=== PATIENT | female | born 1960 | race Caucasian/White ===

== ENCOUNTER → 2017-04-23 | Outpatient (CLI) | payer BC ==
--- NOTE | 2017-04-26 07:51 | MM ---
Reason for exam: screening (asymptomatic). Last mammogram was performed 1 year ago. History: Patient has history of other cancer at age 49. Family history of breast cancer in mother at age 82 and breast cancer in maternal grandmother at age 55. Took hormonal contraceptives for 5 years. Physical Findings: A clinical breast exam by your physician is recommended on an annual basis and results should be correlated with mammographic findings. MG 3D Screening Mammo W/Cad Bilateral CC and MLO view(s) were taken. Prior study comparison: April 23, 2016, left breast MG 3d work up w/cad LT. April 17, 2016, bilateral MG 3d screening mammo w/cad. The breast tissue is extremely dense which could obscure a lesion on mammography. No significant changes when compared with prior studies. ASSESSMENT: Benign, BI-RAD 2 RECOMMENDATION: Routine screening mammogram of both breasts in 1 year.
== END | disposition home or self-care (01) ==
LOC: RADMAMWWP 10:48
PROVIDERS: ATTEND Obstetrics & Gynecology
DX: Z12.31 Encounter for screening mammogram for malignant neoplasm of breast (principal)
CPT/HCPCS: 77063; G0202

== ENCOUNTER → 2018-04-25 | Outpatient (CLI) | payer BC ==
--- NOTE | 2018-04-25 16:53 | BD ---
EXAMINATION TYPE: Axial Bone Density DATE OF EXAM: 04/25/2018 COMPARISON: NONE CLINICAL HISTORY: 57 year-old male known osteopenia, postmenopausal screening Height: 5 FT 5 1/4 IN Weight: 143 FRAX RISK QUESTIONS: RISK FACTORS HISTORY OF: Family History of Osteoporosis: YES Active: YES Postmenopausal woman: AGE 55 MEDICATIONS: Additional Medications: SINGULAIR Additional History: EXAM MEASUREMENTS: Bone mineral densitometry was performed using the [employer] System. Bone mineral density as measured about the Lumbar spine is: ----- L1-L4(G/cm2): 1.186 T Score Values are as follows: ----- L2: -0.2 ----- L3: 0.8 ----- L4: -0.3 ----- L1-L4: 0.0 Bone mineral density has: INCREASED 0.2 % since study of: 2015 Bone mineral density about the R hip (g/cm2): 0.849 Bone mineral density about the L hip (g/cm2): 0.844 T Score values are as follows: -----R Neck: -1.4 -----L Neck: -1.4 -----R Total: -1.2 -----L Total: -1.1 Bone mineral density has: DECREASED -3.0 % since study of: 2015 IMPRESSION: Osteopenia (T Score between -2.5 and -1). There is slightly increased risk of fracture and the patient may be considered for treatment. Re-Screen 2-5 years. NOTE: T-SCORE=SD OF THE YOUNG ADULT MEAN.
--- NOTE | 2018-04-26 08:57 | MM ---
Reason for exam: screening (asymptomatic). Last mammogram was performed 1 year ago. History: Patient is postmenopausal and has history of other cancer at age 49. Family history of breast cancer in mother at age 82 and breast cancer in maternal grandmother at age 55. Took hormonal contraceptives for 5 years. Physical Findings: A clinical breast exam by your physician is recommended on an annual basis and results should be correlated with mammographic findings. MG 3D Screening Mammo W/Cad Bilateral CC and MLO view(s) were taken. Prior study comparison: April 23, 2017, bilateral MG 3d screening mammo w/cad. April 23, 2016, left breast MG 3d work up w/cad LT. The breast tissue is heterogeneously dense. This may lower the sensitivity of mammography. Scattered benign punctate calcifications both breasts. No significant changes when compared with prior studies. ASSESSMENT: Negative, BI-RAD 1 RECOMMENDATION: Routine screening mammogram of both breasts in 1 year.
== END | disposition home or self-care (01) ==
LOC: RADMAMWWP 06:59
PROVIDERS: ATTEND Obstetrics & Gynecology
DX: Z12.31 Encounter for screening mammogram for malignant neoplasm of breast (principal); M85.80 Other specified disorders of bone density and structure, unspecified site
CPT/HCPCS: 77063; 77067; 77080

== ENCOUNTER → 2019-05-03 | Outpatient (CLI) | payer BC ==
--- NOTE | 2019-05-04 15:08 | MM ---
Reason for exam: screening (asymptomatic). Last mammogram was performed 1 year ago. History: Patient is postmenopausal and has history of other cancer at age 49. Family history of breast cancer in mother at age 82 and breast cancer in maternal grandmother at age 55. Took hormonal contraceptives for 5 years. Physical Findings: A clinical breast exam by your physician is recommended on an annual basis and results should be correlated with mammographic findings. MG 3D Screening Mammo W/Cad Bilateral CC and MLO view(s) were taken. Prior study comparison: April 25, 2018, bilateral MG 3d screening mammo w/cad. April 23, 2017, bilateral MG 3d screening mammo w/cad. The breast tissue is extremely dense which could obscure a lesion on mammography. Finding #1: There is a 7 mm equal density (isodense), lobulated mass in the upper quadrant of the left breast. Finding #2: There are typically benign calcifications in both breasts. ASSESSMENT: Incomplete: need additional imaging evaluation, BI-RAD 0 RECOMMENDATION: Special view mammogram of the left breast. If lesion persists on supplemental views, image directed ultrasound is recommended. [facility] will attempt to contact patient to return for supplemental views and ultrasound if indicated.
== END | disposition home or self-care (01) ==
LOC: RADMAMWWP 07:08
PROVIDERS: ATTEND Obstetrics & Gynecology
DX: Z12.31 Encounter for screening mammogram for malignant neoplasm of breast (principal)
CPT/HCPCS: 77063; 77067

== ENCOUNTER → 2019-05-12 | Outpatient (CLI) | payer BC ==
--- NOTE | 2019-05-15 09:17 | MM ---
Reason for exam: additional evaluation requested from abnormal screening. Last mammogram was performed less than 1 month ago. History: Patient is postmenopausal and has history of other cancer at age 49. Family history of breast cancer in mother at age 82 and breast cancer in maternal grandmother at age 55. Took hormonal contraceptives for 5 years. Physical Findings: Nurse did not find any significant physical abnormalities on exam. MG 3D Work Up W/Cad LT Spot compression CC, spot compression MLO, and ML view(s) were taken of the left breast. Prior study comparison: May 03, 2019, bilateral MG 3d screening mammo w/cad. April 25, 2018, bilateral MG 3d screening mammo w/cad. The breast tissue is heterogeneously dense. This may lower the sensitivity of mammography. Benign appearing calcifications in the left breast. Left upper outer quadrant mass and distortion persist 3-4cm from nipple. Ultrasound will be performed. These results were verbally communicated with the patient and result sheet given to the patient on 05/12/19. ASSESSMENT: Incomplete: need additional imaging evaluation, BI-RAD 0 RECOMMENDATION: Ultrasound of the left breast. (upper outer quadrant)
--- NOTE | 2019-05-15 09:18 | USB ---
Reason for exam: additional evaluation requested from abnormal screening. History: Patient is postmenopausal and has history of other cancer at age 49. Family history of breast cancer in mother at age 82 and breast cancer in maternal grandmother at age 55. Took hormonal contraceptives for 5 years. US Breast Workup Limited LT Left limited breast ultrasound including focal area of concern, retroareolar and axilla demonstrates ductal ectasia with debris at the posterior nipple. These results were verbally communicated with the patient and result sheet given to the patient on 05/12/19. ASSESSMENT: Probably benign, BI-RAD 3 RECOMMENDATION: Follow-up diagnostic mammogram of the left breast in 6 months. (3D)
== END | disposition home or self-care (01) ==
LOC: RADMAMWWP 08:54
PROVIDERS: ATTEND Obstetrics & Gynecology
DX: R92.8 Other abnormal and inconclusive findings on diagnostic imaging of breast (principal)
CPT/HCPCS: 77061; 77065

== ENCOUNTER → 2019-11-23 | Outpatient (CLI) | payer BC ==
--- NOTE | 2019-11-23 08:48 | MM ---
Reason for exam: follow-up at short interval from prior study. Last mammogram was performed 6 months ago. History: Patient is postmenopausal and has history of other cancer at age 49. Family history of breast cancer in mother at age 82 and breast cancer in maternal grandmother at age 55. Took hormonal contraceptives for 5 years. Physical Findings: Nurse did not find any significant physical abnormalities on exam. MG 3D Diag Mammo W/Cad LT CC, MLO, and XCCL view(s) were taken of the left breast. Prior study comparison: May 12, 2019, left breast MG 3d work up w/cad LT. May 03, 2019, bilateral MG 3d screening mammo w/cad. April 23, 2017, bilateral MG 3d screening mammo w/cad. April 17, 2016, bilateral MG 3d screening mammo w/cad. April 12, 2015, bilateral MG screening mammo w CAD. The breast tissue is heterogeneously dense. This may lower the sensitivity of mammography. Stable milk of calcium and some grouped punctate calcifications. No significant new findings when compared with previous films. These results were verbally communicated with the patient and result sheet given to the patient on 11/23/19. ASSESSMENT: Benign, BI-RAD 2 RECOMMENDATION: Return to routine screening mammogram schedule for both breasts. Back on schedule.
== END ==
LOC: RADMAMWWP 06:51
PROVIDERS: ATTEND Obstetrics & Gynecology
DX: R92.8 Other abnormal and inconclusive findings on diagnostic imaging of breast (principal)
CPT/HCPCS: 77061; 77065

== ENCOUNTER → 2020-06-20 | Outpatient (CLI) | payer BC ==
--- NOTE | 2020-06-24 09:19 | MM ---
Reason for exam: screening (asymptomatic). Last mammogram was performed 7 months ago. History: Patient is postmenopausal and has history of other cancer at age 49. Family history of breast cancer in mother at age 82 and breast cancer in maternal grandmother at age 55. Took hormonal contraceptives for 5 years. Physical Findings: A clinical breast exam by your physician is recommended on an annual basis and results should be correlated with mammographic findings. MG 3D Screening Mammo W/Cad Bilateral CC and MLO view(s) were taken. Prior study comparison: November 23, 2019, left breast MG 3d diag mammo w/cad LT. May 12, 2019, left breast MG 3d work up w/cad LT. May 03, 2019, bilateral MG 3d screening mammo w/cad. April 25, 2018, bilateral MG 3d screening mammo w/cad. The breast tissue is extremely dense which could obscure a lesion on mammography. Finding: There are increased intermediate concern, suspicious coarse heterogeneous, grouped/clustered calcifications in the posterior position of the left breast. New finding since November 23, 2019, May 12, 2019, May 03, 2019, and April 25, 2018. ASSESSMENT: Incomplete: need additional imaging evaluation, BI-RAD 0 RECOMMENDATION: Special view mammogram of the left breast. [facility] will attempt to contact patient to return for supplemental views.
== END | disposition home or self-care (01) ==
LOC: RADMAMWWP 07:29
PROVIDERS: ATTEND Family Medicine
DX: Z12.31 Encounter for screening mammogram for malignant neoplasm of breast (principal)
CPT/HCPCS: 77063; 77067

== ENCOUNTER → 2020-06-26 | Outpatient (CLI) | payer BC ==
--- NOTE | 2020-06-26 08:50 | MM ---
Reason for exam: additional evaluation requested from abnormal screening. Last mammogram was performed less than 1 month ago. History: Patient is postmenopausal and has history of other cancer at age 49. Family history of breast cancer in mother at age 82 and breast cancer in maternal grandmother at age 55. Took hormonal contraceptives for 5 years. Physical Findings: A clinical breast exam by your physician is recommended on an annual basis and results should be correlated with mammographic findings. MG 3D Work Up W/Cad LT CC with magnification, LM with magnification, and LM view(s) were taken of the left breast. Prior study comparison: June 20, 2020, bilateral MG 3d screening mammo w/cad. November 23, 2019, left breast MG 3d diag mammo w/cad LT. Scattered punctate calcifications, probably benign. 6 month follow up recommended. These results were verbally communicated with the patient and result sheet given to the patient on 06/26/20. ASSESSMENT: Probably benign, BI-RAD 3 RECOMMENDATION: Follow-up diagnostic mammogram of the left breast in 6 months.
== END | disposition home or self-care (01) ==
LOC: RADMAMWWP 07:26
PROVIDERS: ATTEND Obstetrics & Gynecology
DX: R92.8 Other abnormal and inconclusive findings on diagnostic imaging of breast (principal)
CPT/HCPCS: 77061; 77065

== ENCOUNTER → 2021-03-04 | Outpatient (CLI) | payer BC ==
--- NOTE | 2021-03-04 09:34 | MM ---
Reason for exam: follow-up at short interval from prior study. Last mammogram was performed 8 months ago. History: Patient is postmenopausal and has history of other cancer at age 49. Family history of breast cancer in mother at age 82 and breast cancer in maternal grandmother at age 55. Took hormonal contraceptives for 5 years. Physical Findings: Nurse did not find any significant physical abnormalities on exam. MG 3D Diag Mammo W/Cad LT CC, MLO, and XCCL view(s) were taken of the left breast. Prior study comparison: June 26, 2020, left breast MG 3d work up w/cad LT. June 20, 2020, bilateral MG 3d screening mammo w/cad. The breast tissue is extremely dense which could obscure a lesion on mammography. Left breast mildly increased punctate, scattered calcifiations probably benign. These results were verbally communicated with the patient and result sheet given to the patient on 03/04/21. ASSESSMENT: Probably benign, BI-RAD 3 RECOMMENDATION: Follow-up diagnostic mammogram of both breasts in 3 months. Back on schedule for June 2021.
== END | disposition home or self-care (01) ==
LOC: RADMAMWWP 08:09
PROVIDERS: ATTEND Obstetrics & Gynecology
DX: R92.1 Mammographic calcification found on diagnostic imaging of breast (principal); Z78.0 Asymptomatic menopausal state; Z80.3 Family history of malignant neoplasm of breast
CPT/HCPCS: 77061; 77065

== ENCOUNTER → 2021-06-25 | Outpatient (CLI) | payer BC ==
--- NOTE | 2021-06-27 10:34 | MM ---
Reason for exam: follow-up at short interval from prior study. Last mammogram was performed 4 months ago. History: Patient is postmenopausal and has history of other cancer at age 57. Family history of breast cancer in mother at age 82 and breast cancer in maternal grandmother at age 55. Took hormonal contraceptives for 5 years. Physical Findings: Nurse did not find any significant physical abnormalities on exam. MG 3D Diag Mammo W/Cad [place] Bilateral CC and MLO view(s) were taken. LM view(s) were taken of the left breast. Prior study comparison: March 04, 2021, left breast MG 3d diag mammo w/cad LT. June 26, 2020, left breast MG 3d work up w/cad LT. June 20, 2020, bilateral MG 3d screening mammo w/cad. May 03, 2019, bilateral MG 3d screening mammo w/cad. April 25, 2018, bilateral MG 3d screening mammo w/cad. April 23, 2017, bilateral MG 3d screening mammo w/cad. The breast tissue is heterogeneously dense. This may lower the sensitivity of mammography. Grouped calcifications posterior central left CC view appear increased. Additional diffuse punctate calcifications are present. These results were verbally communicated with the patient and result sheet given to the patient on 06/25/21. ASSESSMENT: Suspicious, BI-RAD 4 RECOMMENDATION: Stereotactic core biopsy of the left breast. (CC approach, potentially two sites on magnification) Called Dr. Hall's office with mammographic findings and has scheduled an appointment for the patient for 07/24/21 at 9:[address] Sánchez. Biopsy scheduled at 07/25/21 at 8:00. PRELIMINARY REPORT CALLED AND FAXED TO DR. SÁNCHEZ ON 06/27/21.
== END | disposition home or self-care (01) ==
LOC: RADMAMWWP 07:00
PROVIDERS: ATTEND Obstetrics & Gynecology
DX: R92.1 Mammographic calcification found on diagnostic imaging of breast (principal); Z80.3 Family history of malignant neoplasm of breast
CPT/HCPCS: 77062; 77066

== ENCOUNTER → 2021-07-24 | Outpatient (CLI) | payer BC ==
[2021-07-24 08:59] VITALS: BP 134/79; PULSE 64; RESP 16; TEMP 98.9
--- NOTE | 2021-07-24 09:24 | P.GSHP ---
History of Present Illness H&P Date: 07/24/21 Chief Complaint: abnormal left breast mammogram Dania is a 60 year old white female seen in consultation for Dr. Hall he does not feel any lumps masses or nodules of concern in either breast. She had a recent bilateral mammogram performed on . This revealed 2 areas of microcalcification of concern in the left breast. She was recommended to undergo a left breast stereotactic core biopsy. She has not had any procedures on her breast in the past. She is not complaining of any nipple discharge or skin changes. Caffeine: 4 cups/day nicotine: none chocolate: occasional hormones: none BCP: in 20's for 5 years Family History: mother: breast cancer > 80 maternal grandmother: breast cancer in 50's father: prostate cancer patient basal cell cancer on face Hormonal history: Menarche: 15 , breast fed: no, age at first : 31 menopause: 55 hormones: none Surgical history: skin cancer basal cell Medical history: Negative Social history: Nicotine: Negative Alcohol:weekly several drinks drugs: none - Constitutional Constitutional: Denies chills, Denies fever - EENT Eyes: denies blurred vision, denies pain Ears: deny: decreased hearing, tinnitus Ears, nose, mouth and throat: Denies headache, Denies sore throat - Breasts Breasts: bilateral: as per HPI - Cardiovascular Cardiovascular: Denies chest pain, Denies shortness of breath - Respiratory Comment: asthma Respiratory: Denies cough, Denies 7 - Gastrointestinal Gastrointestinal: Denies abdominal pain, Denies diarrhea, Denies nausea, Denies vomiting - Genitourinary (Female) Genitourinary: Denies dysuria, Denies hematuria - Menstruation Menstruation: Reports as per HPI, Reports postmenopausal - Musculoskeletal Musculoskeletal: Denies myalgias - Integumentary Integumentary: Denies pruritus, Denies rash - Neurological Neurological: Denies numbness, Denies weakness - Psychiatric Psychiatric: Denies anxiety, Denies depression - Endocrine Endocrine: Denies fatigue, Denies weight change - Hematologic/Lymphatic Comment: none - Allergic/Immunologic Allergic/Immunologic: Reports seasonal allergies Past Medical History Past Medical History: Asthma, Cancer Additional Past Medical History / Comment(s): hx skin cancer History of Any Multi-Drug Resistant Organisms: None Reported Additional Past Surgical History / Comment(s): oral surgery Past Anesthesia/Blood Transfusion Reactions: No Reported Reaction Past Psychological History: No Psychological Hx Reported Smoking Status: Never smoker Past Alcohol Use History: Occasional Past Drug Use History: None Reported - Past Family History Father Family Medical History: Cancer Mother Family Medical History: Cancer Medications and Allergies Home Medications Medication Instructions Recorded Confirmed Type Montelukast Sodium [Singulair] 10 mg PO HS 02/12/15 07/10/21 History Ventolin Hfa 1 puff INHALATION DIRECTED PRN 02/12/15 07/10/21 History Biotin 5 mg PO DAILY 07/24/21 07/24/21 History Cholecalciferol [Vitamin D3 (25 25 mcg PO DAILY 07/24/21 07/24/21 History Mcg = 1000 Iu)] Iron 18 mg PO DAILY 07/24/21 07/24/21 History Multivitamin [Multivitamins Adult 1 each PO DAILY 07/24/21 07/24/21 History Gummies] Vitamin B Complex 1 each PO DAILY 07/24/21 07/24/21 History Allergies Allergy/AdvReac Type Severity Reaction Status Date / Time mold,dust,cat Allergy Unknown Unknown Uncoded 07/24/21 08:56 Surgical - Exam Vital Signs Temp Pulse Resp BP Pulse Ox 98.9 F 64 16 134/79 99 07/24/21 08:56 07/24/21 08:56 07/24/21 08:56 07/24/21 08:56 07/24/21 08:56 BMI 23.9 - General no distress - Eyes normal ocular movement - ENT no hearing loss, no congestion - Neck no masses, trachea midline - Respiratory normal respiratory effort, clear to auscultation - Cardiovascular Rhythm: regular Heart Sounds: normal: S1, S2 - Abdomen Abdomen: soft, non tender, no guarding, no rigid, no rebound - Integumentary normal turgor - Neurologic no disoriented, no combative - Musculoskeletal normal gait, normal posture - Psychiatric oriented to time, oriented to person, oriented to place, speech is normal, memory intact Breast Exam: BRA: 36B inspection: Grade 2 ptosis bilaterally Palpation: Right breast: Multi-positional exam fibrocystic changes, no dominant masses or nodules of concern Right axilla: No adenopathy of concern Left breast: Multi-positional exam fibrocystic changes, no dominant masses or nodules of concern Left axilla: No adenopathy of concern Results Impression: 1. Dense fibrocystic breast changes 2. Mammographic abnormality 2 sites in the left breast 3. Family history of breast cancer Plan: 1. Stereotactic core biopsy left breast 2 sites The area of concern in the left breast however one site is somewhat difficult to see this is been reviewed with Dr. Cabrera from radiology. The CC from above approach has been recommended. We will attempt stereotactic core biopsy however this site cannot be well visualized we will most likely defer his 6 month follow-up examination. CC: Dr. Hall
== END ==
LOC: WWCWWP 08:44
PROVIDERS: ATTEND Surgery
DX: R92.2 Inconclusive mammogram (principal); J45.909 Unspecified asthma, uncomplicated; Z80.3 Family history of malignant neoplasm of breast; Z91.048 Other nonmedicinal substance allergy status

== ENCOUNTER → 2021-07-25 | Day surgery (SDC) | payer BC ==
[2021-07-25 07:14] VITALS: RESP 16
[2021-07-25 08:57] VITALS: BP 119/79; PULSE 66; TEMP 98.6
--- NOTE | 2021-07-25 10:54 | P.PCN ---
Date of Procedure: 07/25/21 Preoperative Diagnosis: Mammographic abnormality left breast posterior central area grouped calcifications at 2 sites lateral slightly more medial; more distinct is the more lateral lesion/both appear to be a similar morphology Postoperative Diagnosis: Same Procedure(s) Performed: Stereotactic core biopsy microcalcifications of concern left breast Anesthesia: local Surgeon: Aniya Sánchez Pathology: other (Breast tissue/microcalcifications in specimen) Condition: stable Disposition: same day Indications for Procedure: Microcalcifications of concern left breast Operative Findings: Microcalcifications of concern noted in specimen/specimen samples appears to be the more lateral specimen Description of Procedure: Dania is a 60-year-old white female who was noted on routine mammogram to have 2 areas of calcification of concern in the posterior central aspect of the left breast. The area was reviewed with Dr. Dominguez from radiology and a stereotactic core biopsy with a CC from above approach was recommended. Both areas appear to be a similar morphology. The risks and benefits of stereotactic core biopsy were discussed with the patient. She understands and wishes to proceed. The patient was taken to the stereotactic core biopsy room. A machine learning intern film was obtained. A CC from above approach was utilized. One of the areas of concern was identified. A stereo. Was obtained. The lesion was targeted. The breast was prepped using Betadine. 16 mL of 1% lidocaine were used to anesthetize the area of concern. A 9-gauge vacuum-assisted core rotating biopsy needle was driven to the correct coordinates. Pre-fire film was obtained. The needle was noted to be in the correct location. The needle was fired. A post- fire film was obtained. The needle appeared to be in the correct location. 13 specimens were obtained. Radiograph of the specimens revealed the area of concern had been sampled. Calcifications were in the specimen. A secure marked top clip was placed. This appeared to be in the correct location. A second machine learning intern film was obtained in an attempt to identify the second area of calcifications. These were slightly fainter and were not able to be identified this certainty. Dr. Dominguez was asked to assist and he concurred that the area was not identified with certainty. At this point we determined that the morphology was similar for both and that the second area could be followed conservatively. The attempt at the second biopsy was aborted. Postprocedure mammogram revealed that the clip was in the area of one of the groups of calcifications of concern. The patient tolerated the procedure in stable condition. Specimen was sent to pathology. The patient will follow-up with Dr. Avendaño. CC: Dr. Hall
--- NOTE | 2021-07-25 11:03 | MM ---
Dania is a 60-year-old white female who was noted on routine mammogram to have 2 areas of calcification of concern in the posterior central aspect of the left breast. The area was reviewed with Dr. Dominguez from radiology and a stereotactic core biopsy with a CC from above approach was recommended. Both areas appear to be a similar morphology. The risks and benefits of stereotactic core biopsy were discussed with the patient. She understands and wishes to proceed. The patient was taken to the stereotactic core biopsy room. A bridge design engineer film was obtained. A CC from above approach was utilized. One of the areas of concern was identified. A stereo. Was obtained. The lesion was targeted. The breast was prepped using Betadine. 16 mL of 1% lidocaine were used to anesthetize the area of concern. A 9-gauge vacuum-assisted core rotating biopsy needle was driven to the correct coordinates. Pre-fire film was obtained. The needle was noted to be in the correct location. The needle was fired. A post- fire film was obtained. The needle appeared to be in the correct location. 13 specimens were obtained. Radiograph of the specimens revealed the area of concern had been sampled. Calcifications were in the specimen. A secure marked top clip was placed. This appeared to be in the correct location. A second bridge design engineer film was obtained in an attempt to identify the second area of calcifications. These were slightly fainter and were not able to be identified this certainty. Dr. Dominguez was asked to assist and he concurred that the area was not identified with certainty. At this point we determined that the morphology was similar for both and that the second area could be followed conservatively. The attempt at the second biopsy was aborted. Postprocedure mammogram revealed that the clip was in the area of one of the groups of calcifications of concern. The patient tolerated the procedure in stable condition. Specimen was sent to pathology. The patient will follow-up with Dr. Avendaño. [facility]
== END ==
LOC: RADMAMWWP 07:05
PROVIDERS: ATTEND Surgery
DX: D05.12 Intraductal carcinoma in situ of left breast (principal)
CPT/HCPCS: 88305; 88342; 88341; 19081; A4648; J2001

== ENCOUNTER → 2021-08-07 | Outpatient (CLI) | payer BC ==
[2021-08-07 09:21] VITALS: BP 145/85; PULSE 64; RESP 16; TEMP 98.7
--- NOTE | 2021-08-07 11:25 | P.PN ---
Subjective Progress Note Date: 08/07/21 Principal diagnosis: Ductal carcinoma in situ left breast Dania is a 60-year-old white female who is status post left breast stereotactic core biopsy on [id number]. Pathology revealed grade 3 ductal carcinoma in situ which was ER positive WA negative. She tolerated the proc edure without difficulty. On the initial mammogram there was question as to whether there were 2 areas of calcification to sample however only one could be seen at the stereo biopsy procedure. The case was reviewed with Dr. Cabrera and a repeat diagnostic left breast mammogram with mag views was performed. The second area of calcifications was not apparent. He therefore feels that only one area of DCIS is apparent. This was discussed in detail with the patient. Surgical options including needle localization lumpectomy, +/- sentinel node biopsy, versus mastectomy plus or minus reconstruction were discussed. The reason for the sentinel node biopsy is secondary to the fact that this is a high-grade lesion and we cannot rule out invasive component until further surgical lumpectomy is performed. The patient understood this. The patient tolerated the procedure without difficulty. Objective - Vital Signs Vital signs: Vital Signs Temp 98.7 F 08/07/21 09:15 Pulse 64 08/07/21 09:15 Resp 16 08/07/21 09:15 BP 145/85 08/07/21 09:15 Pulse Ox Intake & Output 08/06/21 08/07/21 08/07/21 18:59 06:59 18:59 Weight 65.771 kg - Constitutional General appearance: Present: average body habitus, cooperative - EENT Eyes: Present: EOMI ENT: Present: hearing grossly normal - Neck Neck: Present: normal ROM - Respiratory Respiratory: bilateral: CTA - Cardiovascular Rhythm: regular Heart sounds: normal: S1, S2 - Gastrointestinal General gastrointestinal: Present: soft - Integumentary Integumentary: Present: normal turgor - Musculoskeletal Musculoskeletal: Present: gait normal - Psychiatric Psychiatric: Present: A&O x's 3, appropriate affect, intact judgment & insight - Additional findings Additional findings: Left breast biopsy site clean and dry No evidence of hematoma or infection Assessment and Plan Assessment: Impression: 1. 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 No other mammographic sites of concern are identified in the left breast on repeat diagnostic left breast mammogram and magnification views reviewed with Dr. Cabrera Plan: After discussion with the patient the patient would prefer to have a needle localization lumpectomy and sentinel node biopsy, possible oncoplastic tissue transfer Genetic testing If genetic testing will be positive the patient does have positive family history mother and maternal grandmother with breast cancer the patient would opt for more aggressive surgical approach. Risks include but are not limited to bleeding, infection, reaction to the anesthetic. The risk but quit moving and failure to remove this at the time of surgery is discussed. The risk of positive margins was discussed. She understands if this were to happen that it may be necessary to have further tissue removed from the breast. Additionally risk of axillary node biopsy include but are not limited to bleeding, infection, reaction to the anesthetic, risk of injury to the thoracodorsal and long thoracic nerve, numbness to the inner arm, or lymphedema. CC: Dr. Hall, Dr. Schwartz
== END ==
LOC: WWCWWP 09:06
PROVIDERS: ATTEND Surgery
DX: D05.12 Intraductal carcinoma in situ of left breast (principal); Z91.09 Other allergy status, other than to drugs and biological substances

== ENCOUNTER → 2021-08-07 | Outpatient (CLI) | payer BC ==
--- NOTE | 2021-08-07 11:05 | MM ---
Reason for exam: additional evaluation requested from prior study. Last mammogram was performed 1 month ago. History: Patient is postmenopausal, has history of breast cancer at age 60, and has history of other cancer at age 57. Family history of breast cancer in mother at age 82 and breast cancer in maternal grandmother at age 55. Malignant MG stereo VAD BX LT of the left breast, July 25, 2021. Took hormonal contraceptives for 5 years. MG 3D Diag Mammo W/Cad LT CC, MLO, and LM view(s) were taken of the left breast. Prior study comparison: June 25, 2021, bilateral MG 3d diag mammo w/cad [facility]. March 04, 2021, left breast MG 3d diag mammo w/cad LT. June 26, 2020, left breast MG 3d work up w/cad LT. June 20, 2020, bilateral MG 3d screening mammo w/cad. May 03, 2019, bilateral MG 3d screening mammo w/cad. April 25, 2018, bilateral MG 3d screening mammo w/cad. The breast tissue is heterogeneously dense. This may lower the sensitivity of mammography. 3 o'clock central grouped calcifications posteriorly with clip at recent biopsy proven site of DCIS. Calcifications more anteriorly on CC were present back to at least 2018. No definate additional suspicious groups identified. These results were verbally communicated with the patient by Dr. Sánchez on 08/07/21. ASSESSMENT: Known biopsy proven malignancy, BI-RAD 6 RECOMMENDATION: Surgical consultation of the left breast. Called Dr. Sánchez's office with mammographic findings. Office to schedule lumpectomy of left breast. PRELIMINARY REPORT CALLED AND FAXED TO DR. SÁNCHEZ ON 08/07/21.
== END | disposition home or self-care (01) ==
LOC: RADMAMWWP 09:55
PROVIDERS: ATTEND Surgery
DX: R92.1 Mammographic calcification found on diagnostic imaging of breast (principal); Z85.3 Personal history of malignant neoplasm of breast; Z80.3 Family history of malignant neoplasm of breast; Z78.0 Asymptomatic menopausal state
CPT/HCPCS: 77061; 77065

== ENCOUNTER → 2021-09-11 | Outpatient (CLI) | payer BC ==
--- NOTE | 2021-09-11 09:10 | BD ---
EXAMINATION TYPE: Axial Bone Density DATE OF EXAM: 09/11/2021 COMPARISON: 04.25.2018 CLINICAL HISTORY: 60 YR OLD FEMALE.....ICD-10 CODE: M85.88 DISORDER OF BD Height: 65.3 Weight: 141 FRAX RISK QUESTIONS: Family History (Parent hip fracture): YES RISK FACTORS HISTORY OF: Family History of Osteoporosis: YES, MOTHER WITH HIP FX Active: YES Postmenopausal woman: YES, AT AGE 56 Hyperparathyroidism: NO Adrenal Insufficiency: NO MEDICATIONS: Prednisone or other steroids: YES, INHALER PRN Additional Medications: VIT D, MULTIVITAMIN Additional History: BREAST CA DCIS, SEASONAL ASTHMA, EXAM MEASUREMENTS: Bone mineral densitometry was performed using the [employer] System. Bone mineral density as measured about the Lumbar spine is: ----- L1-L4(G/cm2): 1.088 T Score Values are as follows: ----- L1: -1.1 ----- L2: -1.1 ----- L3: -0.1 ----- L4: -1.0 ----- L1-L4: -0.8 Bone mineral density has: Decreased -7.9% since study of: 04.25.2018 Bone mineral density about the R hip (g/cm2): 0.781 Bone mineral density about the L hip (g/cm2): 0.792 T Score values are as follows: -----R Neck: -1.4 -----L Neck: -1.7 -----R Total: -1.8 -----L Total: -1.7 Bone mineral density has: Decreased -9.1% since study of: 04.25.2018 FRAX%s: THERE IS A 15.7% CHANCE FOR A MAJOR OSTEOPOROTIC FX AND A 0.9% FOR HIPS.....PROBABILITY FO R FX IN 10 YRS TIME IMPRESSION: Osteopenia NOTE: T-SCORE=SD OF THE YOUNG ADULT MEAN.
== END | disposition home or self-care (01) ==
LOC: RADBDWWP 08:22
PROVIDERS: ATTEND Obstetrics & Gynecology
DX: M85.89 Other specified disorders of bone density and structure, multiple sites (principal); Z82.62 Family history of osteoporosis
CPT/HCPCS: 77080

== ENCOUNTER → 2021-09-19 | Outpatient (CLI) | payer BC ==
[2021-09-19 15:20] VITALS: BP 137/86; PULSE 62; RESP 16; TEMP 97.9
--- NOTE | 2021-09-19 16:23 | P.PN ---
Subjective Progress Note Date: 09/19/21 Principal diagnosis: high grade ductal carcinoma in situ left breast Dania is a 60 year old white female seen in consultation for Dr. Hall she does not feel any lumps masses or nodules of concern in either breast. She had a recent bilateral mammogram performed on . This revealed 2 areas of microcalcification of concern in the left breast. She was recommended to undergo a left breast stereotactic core biopsy. She has not had any procedures on her breast in the past. She was not complaining of any nipple discharge or skin changes. One of the areas of concern were able to be seen for sterotactic biopsy and this was sampled on 07-25-21 and was + for high grade DCIS, Grade 3. This was ER+, Pr-. She had genetic testing done and this was positive for a variant of unknown significance. Caffeine: 4 cups/day nicotine: none chocolate: occasional hormones: none BCP: in 20's for 5 years Family History: mother: breast cancer > 80 maternal grandmother: breast cancer in 50's father: prostate cancer patient basal cell cancer on face Hormonal history: Menarche: 15 , breast fed: no, age at first : 31 menopause: 55 hormones: none Surgical history: skin cancer basal cell Medical history: Negative Social history: Nicotine: Negative Alcohol:weekly several drinks drugs: none - Constitutional Constitutional: Denies chills, Denies fever - EENT Eyes: denies blurred vision, denies pain Ears: deny: decreased hearing, tinnitus Ears, nose, mouth and throat: Denies headache, Denies sore throat - Breasts Breasts: bilateral: as per HPI - Cardiovascular Cardiovascular: Denies chest pain, Denies shortness of breath - Respiratory Comment: asthma Respiratory: Denies cough - Gastrointestinal Gastrointestinal: Denies abdominal pain, Denies diarrhea, Denies nausea, Denies vomiting - Genitourinary (Female) Genitourinary: Denies dysuria, Denies hematuria - Menstruation Menstruation: Reports as per HPI, Reports postmenopausal - Musculoskeletal Musculoskeletal: Denies myalgias - Integumentary Integumentary: Denies pruritus, Denies rash - Neurological Neurological: Denies numbness, Denies weakness - Psychiatric Psychiatric: Denies anxiety, Denies depression - Endocrine Endocrine: Denies fatigue, Denies weight change - Hematologic/Lymphatic Comment: none - Allergic/Immunologic Allergic/Immunologic: Reports seasonal allergies Objective - Vital Signs Vital signs: Vital Signs Temp 97.9 F 09/19/21 15:13 Pulse 62 09/19/21 15:13 Resp 16 09/19/21 15:13 BP 137/86 09/19/21 15:13 Pulse Ox 100 09/19/21 15:13 Intake & Output 09/18/21 09/19/21 09/19/21 18:59 06:59 18:59 Weight 63.503 kg - Exam BMI 23.1 - Constitutional General appearance: Present: cooperative - EENT Eyes: Present: EOMI ENT: Present: hearing grossly normal - Neck Neck: Present: normal ROM - Respiratory Respiratory: bilateral: CTA - Cardiovascular Rhythm: regular Heart sounds: normal: S1, S2 - Gastrointestinal General gastrointestinal: Present: soft - Integumentary Integumentary: Present: normal turgor - Musculoskeletal Musculoskeletal: Present: gait normal - Psychiatric Psychiatric: Present: A&O x's 3, appropriate affect, intact judgment & insight - Additional findings Additional findings: Breast Exam: BRA: 36B inspection: Grade 2 ptosis bilateral Palpation: Right breast: Multi-positional exam fibrocystic changes no dominant masses or nodules of concern Right axilla: No adenopathy of concern Left breast: Positional exam fibrocystic changes, no dominant masses or nodules of concern; area of biopsy no evidence of infection Left axilla: No adenopathy of concern Assessment and Plan Assessment: Impression: 1. Dense fibrocystic breast changes 2. Mammographic abnormality 2 sites initially noted in the left breast one was biopsied dissecting could not be identified on repeat evaluation 3. DCIS high-grade left breast 4. Family history of breast cancer/ genetic evaluation variant of unknown significance Plan: 1. After discussion with the patient the patient would prefer to have needle localization lumpectomy and sentinel node biopsy, possible optical plastic tissue transfer, possible mastopexy incision Brisk and benefits of procedure discussed with the patient. Risks include but are not limited to bleeding, infection, reaction to the anesthetic. If the margins were to be positive further resection would be necessary. The patient also understands that with axillary node dissection. The risk of injury to the thoracodorsal or long thoracic nerve, numbness to the interim, or lymphedema. She understands that if the lesion were divided have some microinvasion or invasive component that that is the reason for the sentinel lobe biopsy. It is possible that this will be ductal carcinoma in situ and she understands that as well. Cc: Dr. Camarena, Dr. Schwartz
== END ==
LOC: WWCWWP 14:57
PROVIDERS: ATTEND Surgery
DX: D05.12 Intraductal carcinoma in situ of left breast (principal); Z80.3 Family history of malignant neoplasm of breast; Z91.09 Other allergy status, other than to drugs and biological substances

== ENCOUNTER → 2021-10-17 | Outpatient (CLI) | payer BC ==
[2021-10-17 15:33] VITALS: BP 124/78; PULSE 66; RESP 18; TEMP 98.7
--- NOTE | 2021-10-17 15:57 | P.PN ---
Progress Note - Text Progress Note Date: 10/17/21 Dania is a 60-year-old white female status post left breast lumpectomy and sentinel node biopsy and 1422. Pathology revealed multifocal ductal carcinoma in situ high-grade with a positive medial margin. 4 mm focus of invasive cancer was identified which was completely excised. [place] lymph node was negative for tumor. I discussed the case with Dr. Menchaca from radiology and he feels that they lesion is truly multifocal. Incision clean and dry Impression: Multifocal ductal carcinoma in situ with invasive component and positive medial margin, negative sentinel node Plan: The presentation of case at tumor board Probable mastectomy with immediate reconstruction At minimum reexcision of medial margin Cc: Dr. Schwartz
== END ==
LOC: WWCWWP 14:45
PROVIDERS: ATTEND Surgery
DX: C50.912 Malignant neoplasm of unspecified site of left female breast (principal); Z98.890 Other specified postprocedural states; Z91.09 Other allergy status, other than to drugs and biological substances

== ENCOUNTER → 2021-10-31 | Outpatient (CLI) | payer BC ==
--- NOTE | 2021-10-31 13:40 | USB ---
Reason for exam: clinical finding. History: Patient is postmenopausal, has history of breast cancer at age 60, and has history of other cancer at age 57. Family history of breast cancer in mother at age 82 and breast cancer in maternal grandmother at age 55. Malignant MG pre op needle loc LT of the left breast, October 07, 2021. Lumpectomy of the left breast, October 07, 2021. Malignant MG stereo VAD BX LT of the left breast, July 25, 2021. Took hormonal contraceptives for 5 years. Physical Findings: Nurse Summary: healing lumpectomy, still painful (nurse lakshmi). US Breast BILAT Right complete breast ultrasound includes all four quadrants, the retroareolar region and axilla. Finding demonstrates no cystic or solid lesion seen. Left complete breast ultrasound includes all four quadrants, the retroareolar region and axilla. Finding demonstrates a 3.0cm irregular, mixed, hypoechoic post operative collection at 2-3 o'clock. These results were verbally communicated with the patient and result sheet given to the patient on 10/31/21. ASSESSMENT: Benign, BI-RAD 2 RECOMMENDATION: Surgical consultation of the left breast. Called office with mammographic findings and has scheduled an appointment for the patient for 11/07/21 at 3:[address] Sánchez. PRELIMINARY REPORT CALLED AND FAXED TO DR. SÁNCHEZ ON 10/31/21.
== END | disposition home or self-care (01) ==
LOC: RADUSWWP 12:49
PROVIDERS: ATTEND Surgery
DX: R92.8 Other abnormal and inconclusive findings on diagnostic imaging of breast (principal); Z78.0 Asymptomatic menopausal state; Z85.3 Personal history of malignant neoplasm of breast; Z80.3 Family history of malignant neoplasm of breast

== ENCOUNTER → 2021-11-07 | Outpatient (CLI) | payer BC ==
[2021-11-07 16:36] VITALS: BP 139/98; PULSE 56; RESP 18; TEMP 98.1
--- NOTE | 2021-11-07 16:45 | P.PN ---
Subjective Progress Note Date: 11/07/21 high grade ductal carcinoma in situ left breast Dania is a 60 year old white female seen in consultation for Dr. Hall she does not feel any lumps masses or nodules of concern in either breast. She had a recent bilateral mammogram performed on . This revealed 2 areas of microcalcification of concern in the left breast. She was recommended to undergo a left breast stereotactic core biopsy. She has not had any procedures on her breast in the past. She was not complaining of any nipple discharge or skin changes. One of the areas of concern were able to be seen for sterotactic biopsy and this was sampled on 07-25-21 and was + for high grade DCIS, Grade 3. This was ER+, Pr-. She had genetic testing done and this was positive for a variant of unknown significance. 11-07-21 Dania had a left breast lumpectoy and SNB in the operating room on 10-07-21. Pathology revealed multifocal ductal carcinoma insitu with a positive medial margin. A 4 mm focus of invasive carcinoma was identified which was completely excised. her case was presented at tumor board and recommendation for re-excision versus mastectomy. Caffeine: 4 cups/day nicotine: none chocolate: occasional hormones: none BCP: in 20's for 5 years Family History: mother: breast cancer > 80 maternal grandmother: breast cancer in 50's father: prostate cancer patient basal cell cancer on face Hormonal history: Menarche: 15 , breast fed: no, age at first : 31 menopause: 55 hormones: none Surgical history: skin cancer basal cell Medical history: Negative Social history: Nicotine: Negative Alcohol:weekly several drinks drugs: none - Constitutional Constitutional: Denies chills, Denies fever - EENT Eyes: denies blurred vision, denies pain Ears: deny: decreased hearing, tinnitus Ears, nose, mouth and throat: Denies headache, Denies sore throat - Breasts Breasts: bilateral: as per HPI - Cardiovascular Cardiovascular: Denies chest pain, Denies shortness of breath - Respiratory Comment: asthma Respiratory: Denies cough - Gastrointestinal Gastrointestinal: Denies abdominal pain, Denies diarrhea, Denies nausea, Denies vomiting - Genitourinary (Female) Genitourinary: Denies dysuria, Denies hematuria - Menstruation Menstruation: Reports as per HPI, Reports postmenopausal - Musculoskeletal Musculoskeletal: Denies myalgias - Integumentary Integumentary: Denies pruritus, Denies rash - Neurological Neurological: Denies numbness, Denies weakness - Psychiatric Psychiatric: Denies anxiety, Denies depression - Endocrine Endocrine: Denies fatigue, Denies weight change - Hematologic/Lymphatic Comment: none - Allergic/Immunologic Allergic/Immunologic: Reports seasonal allergies I reviewed the patient's ultrasounds her bilateral ultrasound revealed from 120 822 no lesions of concern in the right breast, in the left breast is a 3 cm irregular mixed hypoechoic postop collection at the 2 to 3 o'clock position. No other lesions were noted throughout the breast. We attempted to get an MRI but insurance would not allow this. After discussion with the patient she has opted for reexcision of the medial margin. Secondary to the previous healing we will get a needle localization prior to the excision Impression: Positive medial margin after lumpectomy of the left breast Plan: Needle localization reexcision medial margin left breast Risk and benefits of the procedure discussed with the patient. She understands that if the medial margin were positive again we would most likely recommend a mastectomy. Additionally she has seen plastic surgery and at this time she would like to avoid mastectomy and reconstruction if possible. Cc: Dr. Schwartz; Dr. Hall
== END ==
LOC: WWCWWP 15:36
PROVIDERS: ATTEND Surgery
DX: D05.12 Intraductal carcinoma in situ of left breast (principal); Z98.890 Other specified postprocedural states; Z91.09 Other allergy status, other than to drugs and biological substances

== ENCOUNTER → 2021-11-27 | Outpatient (CLI) | payer BC ==
[2021-11-27 08:43] VITALS: BP 145/81; PULSE 58; RESP 17; TEMP 98.2
--- NOTE | 2021-11-27 09:21 | P.PN ---
Subjective Progress Note Date: 11/27/21 Principal diagnosis: positive medial margin on left breast lumpectomy specimen high grade ductal carcinoma in situ left breast Dania is a 60 year old white female seen in consultation for Dr. Hall she does not feel any lumps masses or nodules of concern in either breast. She had a recent bilateral mammogram performed on . This revealed 2 areas of microcalcification of concern in the left breast. She was recommended to undergo a left breast stereotactic core biopsy. She has not had any procedures on her breast in the past. She was not complaining of any nipple discharge or skin changes. One of the areas of concern were able to be seen for sterotactic biopsy and this was sampled on 07-25-21 and was + for high grade DCIS, Grade 3. This was ER+, Pr-. She had genetic testing done and this was positive for a variant of unknown significance. 11-07-21 Dania had a left breast lumpectoy and SNB in the operating room on 10-07-21. Pathology revealed multifocal ductal carcinoma insitu with a positive medial margin. A 4 mm focus of invasive carcinoma was identified which was completely excised. her case was presented at tumor board and recommendation for re-excision versus mastectomy. SNB was negative for tumor Caffeine: 4 cups/day nicotine: none chocolate: occasional hormones: none BCP: in 20's for 5 years Family History: mother: breast cancer > 80 maternal grandmother: breast cancer in 50's father: prostate cancer patient basal cell cancer on face Hormonal history: Menarche: 15 , breast fed: no, age at first : 31 menopause: 55 hormones: none Surgical history: skin cancer basal cell Medical history: Negative Social history: Nicotine: Negative Alcohol:weekly several drinks drugs: none - Constitutional Constitutional: Denies chills, Denies fever - EENT Eyes: denies blurred vision, denies pain Ears: deny: decreased hearing, tinnitus Ears, nose, mouth and throat: Denies headache, Denies sore throat - Breasts Breasts: bilateral: as per HPI - Cardiovascular Cardiovascular: Denies chest pain, Denies shortness of breath - Respiratory Comment: asthma Respiratory: Denies cough - Gastrointestinal Gastrointestinal: Denies abdominal pain, Denies diarrhea, Denies nausea, Denies vomiting - Genitourinary (Female) Genitourinary: Denies dysuria, Denies hematuria - Menstruation Menstruation: Reports as per HPI, Reports postmenopausal - Musculoskeletal Musculoskeletal: Denies myalgias - Integumentary Integumentary: Denies pruritus, Denies rash - Neurological Neurological: Denies numbness, Denies weakness - Psychiatric Psychiatric: Denies anxiety, Denies depression - Endocrine Endocrine: Denies fatigue, Denies weight change - Hematologic/Lymphatic Comment: none - Allergic/Immunologic Allergic/Immunologic: Reports seasonal allergies I reviewed the patient's ultrasounds her bilateral ultrasound revealed from 120 822 no lesions of concern in the right breast, in the left breast is a 3 cm irregular mixed hypoechoic postop collection at the 2 to 3 o'clock position. No other lesions were noted throughout the breast. We attempted to get an MRI but insurance would not allow this. After discussion with the patient she has opted for reexcision of the medial margin. Secondary to the previous healing we will get a needle localization prior to the excision Impression: Positive medial margin after lumpectomy of the left breast Plan: Needle localization reexcision medial margin left breast Risk and benefits of the procedure discussed with the patient. She understands that if the medial margin were positive again we would most likely recommend a mastectomy. Additionally she has seen plastic surgery and at this time she would like to avoid mastectomy and reconstruction if possible. Cc: Dr. Schwartz; Dr. Hall Additional CC's: Royer Schwartz Objective - Vital Signs Vital signs: Vital Signs Temp 98.2 F 11/27/21 08:39 Pulse 58 L 11/27/21 08:39 Resp 17 11/27/21 08:39 BP 145/81 11/27/21 08:39 Pulse Ox 99 11/27/21 08:39 Intake & Output 11/26/21 11/27/21 11/27/21 18:59 06:59 18:59 Weight 64.864 kg - Exam BMI 23.4 - Constitutional General appearance: Present: cooperative - EENT ENT: Present: hearing grossly normal - Neck Neck: Present: normal ROM - Respiratory Respiratory: bilateral: CTA - Cardiovascular Rhythm: regular Heart sounds: normal: S1, S2 - Gastrointestinal General gastrointestinal: Present: soft - Integumentary Integumentary: Present: normal turgor - Musculoskeletal Musculoskeletal: Present: gait normal - Psychiatric Psychiatric: Present: A&O x's 3, appropriate affect, intact judgment & insight - Additional findings Additional findings: Best exam: BRA: 36B Inspection: Left breast incision is clean and dry no evidence of any infection; axillary incision clean and dry Palpation: Right breast: No dominant masses or nodules of concern Right axilla: Recently examined no adenopathy of concern Left breast: Well-healed scar no evidence of infection, no postoperative hematoma or changes of concern Left axilla: No adenopathy of concern Assessment and Plan Assessment: I reviewed the patient's ultrasounds her bilateral ultrasound revealed from 120 822 no lesions of concern in the right breast, in the left breast is a 3 cm irregular mixed hypoechoic postop collection at the 2 to 3 o'clock position. No other lesions were noted throughout the breast. We attempted to get an MRI but insurance would not allow this. After discussion with the patient she has opted for reexcision of the medial margin. Secondary to the previous healing we will get a needle localization prior to the excision Impression: Positive medial margin after lumpectomy of the left breast Plan: Needle localization reexcision medial margin left breast Risk and benefits of the procedure discussed with the patient. She understands that if the medial margin were positive again we would most likely recommend a mastectomy. Additionally she has seen plastic surgery and at this time she wo uld like to avoid mastectomy and reconstruction if possible
== END ==
LOC: WWCWWP 08:28
PROVIDERS: ATTEND Surgery
DX: D05.12 Intraductal carcinoma in situ of left breast (principal); Z98.890 Other specified postprocedural states; Z91.09 Other allergy status, other than to drugs and biological substances

== ENCOUNTER 2021-12-09 09:02 | Day surgery (SDC) | payer BC ==
[2021-11-26 16:34] VITALS: BMI 22.9
[~2021-12-09 09:02] MED LIST: DEXAMETHASONE SOD PHOSPHATE 4 MG/ML 1 ML VIAL IV ONE; HEPARIN SODIUM,PORCINE/PF 5,000 UNIT/0.5 ML SYRINGE SQ PRN; HYDROmorphone 0.5 MG/0.5 ML SYRINGE IVP PRN; LACTATED RINGERS 1,000 ML IV SCH; LIDOCAINE 1% (10MG/ML) FOR IV START INTRADERMA PRN; ONDANSETRON 4 MG/2 ML VIAL IVP ONE; Pre Op ABX Message 1 EACH MISC MISCELLANE ONE; SCOPOLAMINE 1.5MG/72HR PATCH TRANSDERM ONE
[2021-12-09 09:34] VITALS: RESP 16
[2021-12-09] MEDS ORDERED: ALPRAZolam 0.5 MG TAB ONE (09:37)
[2021-12-09] MEDS ORDERED: ALPRAZolam 0.5 MG TAB PO ONE (09:45)
[2021-12-09] MEDS ORDERED: LIDOCAINE 1% INJ 10MG/ML (20 ML MDV) SQ ONE (10:53)
--- NOTE | 2021-12-09 11:25 | P.NAPBC ---
NAPBC Queries - NAPBC Queries Was patient's case review presented at [facility] tumor board? If no, comment.: Yes Was patient's pathology reviewed at [facility]? If no, comment.: Yes Was breast conservation surgery offered? If no, comment.: Yes Was sentinel node biopsy offered? If no, comment.: No (already done) Was diagnosis confirmed by percutaneous core biopsy? If no, comment.: Yes Is patient mastectomy patient?: No [facility] Comments: stage IA left breast invasive ductal cancer
[2021-12-09] MEDS ORDERED: ePHEDrine 50 MG/ML 1 ML VIAL ONE (12:03)
[2021-12-09] MEDS ORDERED: fentaNYL (PF) 50 MCG/ML 2 ML AMP ONE (12:03)
[2021-12-09] MEDS ORDERED: PROPOFOL 10 MG/ML 20 ML VIAL IV ONE (12:03)
[2021-12-09] MEDS ORDERED: SUCCINYLCHOLINE CHLORIDE 100 MG/5 ML SYR IV ONE (12:03)
[2021-12-09] MEDS ORDERED: LIDOCAINE 1% INJ 10MG/ML (20 ML MDV) ONE (12:03)
[2021-12-09] MEDS ORDERED: MIDAZOLAM 2 MG/2 ML VIAL ONE (12:03)
[2021-12-09] MEDS ORDERED: SODIUM CHLORIDE 0.9% 100 ML with ceFAZolin 2,000 MG IV ONE ×2 (12:38)
[2021-12-09] MEDS ORDERED: LACTATED RINGERS 1,000 ML IV ONE (13:19)
--- NOTE | 2021-12-09 13:33 | P.OP ---
Date of Procedure: 12/09/21 Preoperative Diagnosis: Positive medial margin after lumpectomy left breast Postoperative Diagnosis: Same Procedure(s) Performed: Reexcision medial margin prior left breast lumpectomy site Anesthesia: NICKOLASA Surgeon: Aniya Sánchez Estimated Blood Loss (ml): 5 IV fluids (ml): 700 Pathology: other (Breast tissue) Condition: stable Disposition: same day Indications for Procedure: Positive medial margin from left breast lumpectomy site Operative Findings: Dense breast tissue Description of Procedure: Dania is a 52-year-old white female status post left breast lumpectomy. 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 Recommendation was for reexcision of the medial margin. The patient was first seen in the radiology department where needle localization of prior lumpectomy cavity was performed. The patient was then brought to the operating room and following induction of anesthesia the left breast was prepped and draped in a sterile fashion. A superior areolar incision was used initially and we were able to use the same incision. An incision was made at the prior site. Dissection was performed down through the subcutaneous tissue to the needle which had been placed for localization. The surrounding tissue was excised. The biopsy cavity was clearly identified and a new medial margin was obtained. Several everett in the cavity were identified and removed with the specimen. The specimen was painted for orientation. After we were assured that hemostasis was attained the wound was well irrigated. Surgicel in powder form was placed. The deep tissues were reapproximated using 3-0 Vicryl suture. This was followed by closure of the skin with 3-0 Vicryl suture followed by a 4-0 Monocryl. The patient tolerated the procedure in stable condition.
--- NOTE | 2021-12-09 13:34 | P.DS ---
Providers Attending physician: Aniya Sánchez Primary care physician: Romero Schwartz Plan - Discharge Summary Discharge Rx Participant: Yes New Discharge Prescriptions: No Action Montelukast Sodium [Singulair] 10 mg PO HS Ventolin Hfa 2 puff INHALATION DIRECTED PRN PRN Reason: Shortness Of Breath Cholecalciferol [Vitamin D3 (25 Mcg = 1000 Iu)] 25 mcg PO DAILY Multivitamin [Multivitamins Adult Gummies] 1 each PO DAILY Vitamin B Complex 1 each PO DAILY Ascorbic Acid [Vitamin C] 1,000 mg PO DAILY Iron 18 mg PO Q48H Discharge Medication List Montelukast Sodium [Singulair] 10 mg PO HS 02/12/15 [History] Ventolin Hfa 2 puff INHALATION DIRECTED PRN 02/12/15 [History] Cholecalciferol [Vitamin D3 (25 Mcg = 1000 Iu)] 25 mcg PO DAILY 07/24/21 [History] Iron 18 mg PO Q48H 07/24/21 [History] Multivitamin [Multivitamins Adult Gummies] 1 each PO DAILY 07/24/21 [History] Vitamin B Complex 1 each PO DAILY 07/24/21 [History] Ascorbic Acid [Vitamin C] 1,000 mg PO DAILY 09/30/21 [History] Follow up Appointment(s)/Referral(s): Aniya Sánchez MD [STAFF PHYSICIAN] - 12/25/21 4:20 pm Activity/Diet/Wound Care/Special Instructions: do not drive for 24 hours wear bra at all timtes may shower after 24 hours Discharge Disposition: HOME SELF-CARE
[2021-12-09 13:49] VITALS: TEMP 97.6
[2021-12-09] MEDS ORDERED: ACETAMINOPHEN TAB 325 MG TAB ONE (14:44)
[2021-12-09] MEDS ORDERED: ACETAMINOPHEN TAB 325 MG TAB PO ONE (14:45)
[2021-12-09 15:08] VITALS: BP 134/82; PULSE 69
--- NOTE | 2021-12-09 19:17 | MM ---
EXAMINATION TYPE: MG pre op needle loc LT, MG surgical specimen LT DATE OF EXAM: 12/09/2021 COMPARISON: 10/07/2021 CLINICAL HISTORY: 60-year-old female status post lumpectomy with biopsy-proven invasive ductal carcin nickolas and DCIS focally involving the medial margin. Referred for needle localization for medial margin excision. TECHNIQUE: Needle localization with wire placement and surgical excision of area of concern in the le ft breast. FINDINGS: The procedure of needle localization with wire placement and than surgical excision was exp lained to the patient. Benefits, alternatives, and risks were discussed. An informed consent was th en obtained. The posterior excision site was assessed. Titanium surgical clips are noted in the medial clip was ta rgeted via a CC from above approach in order to facilitate identification of the medial margin for th e surgeon. The overlying skin was prepped and draped in usual sterile fashion. Lidocaine was used as anesthetic into the skin and subcutaneous tissue up to the level of area of concern. A 9 cm Kopan's needle was used. It was placed via a superior approach under mammographic guidance. Subsequent 90 degrees mamm ogram show the needle to be in satisfactory position relative to the targeted area. At this point, w jose was placed and the needle was withdrawn. The wire was fixed to patient's skin. Images were sameer ed for surgeon. The patient tolerated the procedure well without any immediate complication. The patient was kept in the radiology department for short stay after the procedure and then taken to surgery for surgical e xcision. The wire and a loose surgical clip are identified in specimen mammogram. The patient was ke pt in hospital for short stay after the procedure and then discharged home in stable condition. IMPRESSION: Successful, uncomplicated needle localization and excision of focally involved (by DCIS) medial mavis n of the patient's previous left breast excision. Full pathology results to follow.
== END 2021-12-09 15:27 | disposition home or self-care (01) ==
LOC: OR 09:02
PROVIDERS: ATTEND Surgery
DX: D05.12 Intraductal carcinoma in situ of left breast (principal)
CPT/HCPCS: 19281; 76098; C1819; J2250; J1100; J2405; J0690; J2001; J3010; J0330; J2704; J1170; J1644

== ENCOUNTER → 2021-12-25 | Outpatient (CLI) | payer BC ==
[2021-12-25 16:25] VITALS: BP 159/92; PULSE 79; RESP 17; TEMP 98.5
--- NOTE | 2021-12-25 17:18 | P.PN ---
Progress Note - Text Progress Note Date: 12/25/21 Patient is status post a left breast reexcision on her lumpectomy site pathology revealed a lobular neoplasia ALH/LCIS and fibrocystic changes. No residual DCIS was identified. The patient pre-procedure to this was noted to have some questionable changes in the left breast mammogram. We had requested an MRI and been denied by insurance. We had therefore proceeded with ultrasound of the breast which did not show any additional areas. The patient states that she has talked to the insurance company and that at this time they may be willing to do the MRI. Physical exam: Lungs: Clear Heart: Regular rate and rhythm Incision: Clean and dry Impression: At this time patient does not have any evidence of residual disease/cancer Patient is concerned about radiographic changes on her mammogram and the like to again pursue an MRI. Appointment with medical oncology Appointment with radiation oncology Follow-up care after MRI Cc: Dr. Camarena, Dr. Schwartz
== END ==
LOC: WWCWWP 16:13
PROVIDERS: ATTEND Surgery
DX: Z08 Encounter for follow-up examination after completed treatment for malignant neoplasm (principal); Z85.3 Personal history of malignant neoplasm of breast; Z91.09 Other allergy status, other than to drugs and biological substances

== ENCOUNTER → 2022-01-22 | Outpatient (CLI) | payer BC ==
--- NOTE | 2022-01-23 07:58 | CA ---
Transthoracic Echo Report Name: Dania Dempsey Age: 61 Gender: F : 1960 Exam Date: 01/22/2022 15:08 Exam Location: [facility] Ht (in): 65 Wt (lb): 140 Ordering Physician: Gonzalez Miranda MD Attending/Referring Phys: Flap Maker Qian Tapia RDCS Procedure CPT: Indications: Z01.818 Encounter for preprocedural exam Cardiac Hx: Technical Quality: Good Contrast 1: Total Dose (mL): Contrast 2: Total Dose (mL): MEASUREMENTS (Male / Female) Normal Values 2D ECHO LV Diastolic Diameter PLAX 4.4 cm 4.2 - 5.9 / 3.9 - 5.3 cm LV Systolic Diameter PLAX 2.2 cm IVS Diastolic Thickness 0.7 cm 0.6 - 1.0 / 0.6 - 0.9 cm LVPW Diastolic Thickness 0.8 cm 0.6 - 1.0 / 0.6 - 0.9 cm LV Relative Wall Thickness 0.3 RV Internal Dim ED PLAX 2.5 cm LA Volume 45.8 cm 18 - 58 / 22 - 52 cm M-MODE Aortic Root Diameter MM 2.1 cm LA Systolic Diameter MM 3.1 cm LA Ao Ratio MM 1.5 MV E Point Septal Separation 0.7 cm AV Cusp Separation MM 1.3 cm DOPPLER AV Peak Velocity 136.2 cm/s AV Peak Gradient 7.4 mmHg MV Area PHT 3.2 cm MR Peak Velocity 303.5 cm/s MR Peak Gradient 36.8 mmHg Mitral E Point Velocity 59.4 cm/s Mitral A Point Velocity 58.3 cm/s Mitral E to A Ratio 1.0 MV Deceleration Time 235.4 ms MV E' Velocity 7.4 cm/s Mitral E to MV E' Ratio 8.0 TR Peak Velocity 160.9 cm/s TR Peak Gradient 10.4 mmHg Right Ventricular Systolic Press 14.4 mmHg FINDINGS Left Ventricle Normal left ventricular size, wall thickness, systolic function with no obvious regional wall motion abnormalities. Normal left ventricular diastolic filling pattern for age. The ejection fraction is visually estimated at 55-60 %. Normal peak systolic strain. Right Ventricle The right ventricle is normal in size and function. Right Atrium The right atrium is normal in size. Left Atrium The left atrium is normal in size. Mitral Valve Structurally normal mitral valve without significant stenosis or prolapse. There is mild mitral regurgitation. Aortic Valve Structurally normal aortic valve without significant sclerosis or stenosis. There is no aortic regurgitation. Tricuspid Valve Structurally normal tricuspid valve without significant stenosis. Pulmonary artery systolic pressure is normal. Mild tricuspid regurgitation. Pulmonic Valve Structurally normal pulmonic valve without significant stenosis. There is no pulmonic regurgitation. Pericardium Normal pericardium without effusion. Aorta Normal aortic root dimension. CONCLUSIONS #1. Normal ventricular size and function. #2. Mild mitral regurgitation. #3. Mild tricuspid regurgitation. #4. Normal chamber sizes. #5. No pericardial effusion Previewed by: Dr. Keith Jimenez MD (Electronically Signed) Final Date: 23 January 2022 07:56
== END | disposition home or self-care (01) ==
LOC: RADECHMAIN 14:27
PROVIDERS: ATTEND Internal Medicine Hematology & Oncology
DX: Z01.818 Encounter for other preprocedural examination (principal); I08.1 Rheumatic disorders of both mitral and tricuspid valves
CPT/HCPCS: 93306

== ENCOUNTER → 2022-05-01 | Outpatient (CLI) | payer BC ==
[2022-05-01 13:52] VITALS: BP 129/84; PULSE 67; RESP 17; TEMP 97.9
--- NOTE | 2022-05-01 14:11 | P.PN ---
Subjective Progress Note Date: 05/01/22 Principal diagnosis: left breast stage IA invasive ductal cancer positive medial margin on left breast lumpectomy specimen high grade ductal carcinoma in situ left breast Dania is a 60 year old white female seen in consultation for Dr. Hall she does not feel any lumps masses or nodules of concern in either breast. She had a recent bilateral mammogram performed on . This revealed 2 areas of microcalcification of concern in the left breast. She was recommended to undergo a left breast stereotactic core biopsy. She has not had any procedures on her breast in the past. She was not complaining of any nipple discharge or skin changes. One of the areas of concern were able to be seen for sterotactic biopsy and this was sampled on 07-25-21 and was + for high grade DCIS, Grade 3. This was ER+, Pr-. She had genetic testing done and this was positive for a variant of unknown significance. 11-07-21 Dania had a left breast lumpectoy and SNB in the operating room on 10-07-21. Pathology revealed multifocal ductal carcinoma insitu with a positive medial margin. A 4 mm focus of invasive carcinoma was identified which was completely excised. her case was presented at tumor board and recommendation for re-excision versus mastectomy. SNB was negative for tumor 05-01-22 The patient underwent re-excision of the lumpectomy site, medial margin on 12-09-21. No further cancer was noted. She was seen by radiation oncology and is recommended to start radiation therapy which she will do in about 1 month. She was seen by Dr. Miradna and is receiving Taxol and transtuzamab. She will be done with the Taxol next week and will continue the transtuzamab for a full year. She is not concerned about any new lumps masses or nodules in her breast at this time. Caffeine: 4 cups/day nicotine: none chocolate: occasional hormones: none BCP: in 20's for 5 years Family History: mother: breast cancer > 80 maternal grandmother: breast cancer in 50's father: prostate cancer patient basal cell cancer on face Hormonal history: Menarche: 15 , breast fed: no, age at first : 31 menopause: 55 hormones: none Surgical history: skin cancer basal cell Medical history: Negative Social history: Nicotine: Negative Alcohol:weekly several drinks drugs: none - Constitutional Constitutional: Denies chills, Denies fever - EENT Eyes: denies blurred vision, denies pain Ears: deny: decreased hearing, tinnitus Ears, nose, mouth and throat: Denies headache, Denies sore throat - Breasts Breasts: bilateral: as per HPI - Cardiovascular Cardiovascular: Denies chest pain, Denies shortness of breath - Respiratory Comment: asthma Respiratory: Denies cough - Gastrointestinal Gastrointestinal: Denies abdominal pain, Denies diarrhea, Denies nausea, Denies vomiting - Genitourinary (Female) Genitourinary: Denies dysuria, Denies hematuria - Menstruation Menstruation: Reports as per HPI, Reports postmenopausal - Musculoskeletal Musculoskeletal: Denies myalgias - Integumentary Integumentary: Denies pruritus, Denies rash - Neurological Neurological: Denies numbness, Denies weakness - Psychiatric Psychiatric: Denies anxiety, Denies depression - Endocrine Endocrine: Denies fatigue, Denies weight change - Hematologic/Lymphatic Comment: none - Allergic/Immunologic Allergic/Immunologic: Reports seasonal allergies Objective - Vital Signs Vital signs: Vital Signs Temp 97.9 F 05/01/22 13:50 Pulse 67 05/01/22 13:50 Resp 17 05/01/22 13:50 BP 129/84 05/01/22 13:50 Pulse Ox 99 05/01/22 13:50 FiO2 Intake & Output 04/30/22 05/01/22 05/01/22 18:59 06:59 18:59 Weight 64.864 kg - Constitutional General appearance: Present: cooperative - EENT Eyes: Present: EOMI ENT: Present: hearing grossly normal - Neck Neck: Present: normal ROM - Respiratory Respiratory: bilateral: CTA - Cardiovascular Rhythm: regular Heart sounds: normal: S1, S2 - Integumentary Integumentary: Present: normal turgor - Musculoskeletal Musculoskeletal: Present: gait normal - Psychiatric Psychiatric: Present: A&O x's 3, appropriate affect, intact judgment & insight - Additional findings Additional findings: Breast Examination: BRA: 36B Inspection: Well-healed scar left breast from prior surgery, bilateral grade 2 ptosis Palpation: Right breast: Dense breast a multi-positional exam no dominant masses or nodules of concern Right axilla: No adenopathy of concern Left breast: Well-healed scar from prior surgery, dense breasts, no dominant masses or nodules of concern Left axilla: No adenopathy of concern Assessment and Plan Assessment: Impression: Left breast stage IA invasive ductal carcinoma no evidence of recurrence Patient is finishing a course of chemotherapy Taxol/immunotherapy trans-to use a map with Dr. Miranda Patient to undergo radiation therapy starting next month hormone therapy to start after she finishes the radiation Plan: Right breast mammogram in June with physician exam at that time Defer left breast mammogram till after the radiation therapy Continue transtuzamab as per Dr. Miranda hormone therapy to start after she finishes the radiation follow up in June after mammogram CC: Dr. Schwartz, Dr. Hall
== END ==
LOC: WWCWWP 13:31
PROVIDERS: ATTEND Surgery
DX: Z08 Encounter for follow-up examination after completed treatment for malignant neoplasm (principal); Z85.3 Personal history of malignant neoplasm of breast; Z98.890 Other specified postprocedural states; Z91.09 Other allergy status, other than to drugs and biological substances

== ENCOUNTER → 2022-07-03 | Outpatient (CLI) | payer BC ==
--- NOTE | 2022-07-03 14:35 | MM ---
Reason for Exam: Additional evaluation requested from prior study. Last screening mammogram was performed 12 month(s) ago. Patient History: Menarche at age 15. First Full-Term at age 30. Postmenopausal. Other cancer, age 57. Breast cancer, left, age 60. Patient used Hormonal Contraceptives for 5 years. 10/07/2021, Lumpectomy on the Left side. 12/09/2021, High risk Core Biopsy on the left side. 10/07/2021, Malignant Core Biopsy on the left side. 07/25/2021, Malignant Core Biopsy on the left side. Maternal grandmother had breast cancer, age 55. Mother had breast cancer, age 82. Prior Study Comparison: 03/04/2021 Left Diagnostic Mammogram, [facility]. 06/25/2021 Bilateral Diagnostic Mammogram, [facility]. 08/07/2021 Left Diagnostic Mammogram, [facility]. Tissue Density: Right: The breast tissue is heterogeneously dense. This may lower the sensitivity of mammography. Findings: Analyzed By CAD. No evidence for mass or suspicious cluster of calcifications. Overall Assessment: Benign, BI-RAD 2 Management: Diagnostic Mammogram of both breasts in 6 months. A clinical breast exam by your physician is recommended on an annual basis and results should be correlated with mammographic findings. This exam should not preclude additional follow-up of suspicious palpable abnormalities. Results were given to the patient verbally at the time of exam. Electronically signed and approved by: Addy Dominguez M.D. Radiologis
== END | disposition home or self-care (01) ==
LOC: RADMAMWWP 14:09
PROVIDERS: ATTEND Surgery
DX: R92.8 Other abnormal and inconclusive findings on diagnostic imaging of breast (principal); Z78.0 Asymptomatic menopausal state; Z80.3 Family history of malignant neoplasm of breast
CPT/HCPCS: 77061; 77065

== ENCOUNTER → 2022-07-03 | Outpatient (CLI) | payer BC ==
[2022-07-03 14:41] VITALS: BP 126/85; PULSE 63; RESP 16; TEMP 98.4
--- NOTE | 2022-07-03 14:59 | P.PN ---
Subjective Progress Note Date: 07/03/22 Principal diagnosis: left breast stage IA invasive ductal cancer/dx. 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 Hall she does not feel any lumps masses or nodules of concern in either breast. She had a recent bilateral mammogram performed on . This revealed 2 areas of microcalcification of concern in the left breast. She was recommended to undergo a left breast stereotactic core biopsy. She has not had any procedures on her breast in the past. She was not complaining of any nipple discharge or skin changes. One of the areas of concern were able to be seen for sterotactic biopsy and this was sampled on 07-25-21 and was + for high grade DCIS, Grade 3. This was ER+, Pr-. She had genetic testing done and this was positive for a variant of unknown significance. 11-07-21 Dania had a left breast lumpectoy and SNB in the operating room on 10-07-21. Pathology revealed multifocal ductal carcinoma insitu with a positive medial margin. A 4 mm focus of invasive carcinoma was identified which was completely excised. her case was presented at tumor board and recommendation fo r re-excision versus mastectomy. SNB was negative for tumor 05-01-22 The patient underwent re-excision of the lumpectomy site, medial margin on 12-09-21. No further cancer was noted. She was seen by radiation oncology and is recommended to start radiation therapy which she will do in about 1 month. She was seen by Dr. Miranda and is receiving Taxol and transtuzamab. She will be done with the Taxol next week and will continue the transtuzamab for a full year. She is not concerned about any new lumps masses or nodules in her breast at this time. 07-03-[address] Miranda reviewed 05-28-22 ; patient received adjuvant weekly Taxol/Herceptin 12 weeks with recommendation of one full year of Herceptin Adjuvant endocrine therapy after x-ray therapy completed Note radiation oncology reviewed 01-06-22; She finished radiation June 17 She is not complaining of any new lumps, masses or nodules in her breast. Her last mammogram was 07-03-22 for the right side. She will wait for the left side until healed from the radiation. Caffeine: 4 cups/day nicotine: none chocolate: occasional hormones: none BCP: in 20's for 5 years Family History: mother: breast cancer > 80 maternal grandmother: breast cancer in 50's father: prostate cancer patient basal cell cancer on face Hormonal history: Menarche: 15 , breast fed: no, age at first : 31 menopause: 55 hormones: none Surgical history: skin cancer basal cell Medical history: Negative Social history: Nicotine: Negative Alcohol:weekly several drinks drugs: none - Constitutional Constitutional: Denies chills, Denies fever - EENT Eyes: denies blurred vision, denies pain Ears: deny: decreased hearing, tinnitus Ears, nose, mouth and throat: Denies headache, Denies sore throat - Breasts Breasts: bilateral: as per HPI - Cardiovascular Cardiovascular: Denies chest pain, Denies shortness of breath - Respiratory Comment: asthma Respiratory: Denies cough - Gastrointestinal Gastrointestinal: Denies abdominal pain, Denies diarrhea, Denies nausea, Denies vomiting - Genitourinary (Female) Genitourinary: Denies dysuria, Denies hematuria - Menstruation Menstruation: Reports as per HPI, Reports postmenopausal - Musculoskeletal Musculoskeletal: Denies myalgias - Integumentary Integumentary: Denies pruritus, Denies rash - Neurological Neurological: Denies numbness, Denies weakness - Psychiatric Psychiatric: Denies anxiety, Denies depression - Endocrine Endocrine: Denies fatigue, Denies weight change - Hematologic/Lymphatic Comment: none - Allergic/Immunologic Allergic/Immunologic: Reports seasonal allergies Objective - Vital Signs Vital signs: Vital Signs Temp 97.9 F 05/01/22 13:50 Pulse 67 05/01/22 13:50 Resp 17 05/01/22 13:50 BP 129/84 05/01/22 13:50 Pulse Ox 99 05/01/22 13:50 FiO2 Intake & Output 04/30/22 05/01/22 05/01/22 18:59 06:59 18:59 Weight 64.864 kg - Constitutional General appearance: Present: cooperative - EENT Eyes: Present: EOMI ENT: Present: hearing grossly normal - Neck Neck: Present: normal ROM - Respiratory Respiratory: bilateral: CTA - Cardiovascular Rhythm: regular Heart sounds: normal: S1, S2 - Integumentary Integumentary: Present: normal turgor - Musculoskeletal Musculoskeletal: Present: gait normal - Psychiatric Psychiatric: Present: A&O x's 3, appropriate affect, intact judgment & insight - Additional findings Additional findings: Breast Examination: BRA: 36B Inspection: Well-healed scar left breast from prior surgery, bilateral grade 2 ptosis Palpation: Right breast: Dense breast a multi-positional exam no dominant masses or nodules of concern Right axilla: No adenopathy of concern Left breast: Well-healed scar from prior surgery, dense breasts, no dominant masses or nodules of concern Left axilla: No adenopathy of concern Assessment and Plan Assessment: Impression: Left breast stage IA invasive ductal carcinoma no evidence of recurrence Patient is finishing a course of chemotherapy Taxol/immunotherapy trans-to use a map with Dr. Miranda Patient to undergo radiation therapy starting next month hormone therapy to start after she finishes the radiation Plan: Right breast mammogram in June with physician exam at that time Defer left breast mammogram till after the radiation therapy Continue transtuzamab as per Dr. Miranda hormone therapy to start after she finishes the radiation follow up in June after mammogram CC: Dr. Schwartz, Dr. Hall Additional CC's: Royer Schwartz Objective - Vital Signs Vital signs: Vital Signs Temp 98.4 F 07/03/22 14:35 Pulse 63 07/03/22 14:35 Resp 16 07/03/22 14:35 BP 126/85 07/03/22 14:35 Pulse Ox 99 07/03/22 14:35 FiO2 Intake & Output 07/02/22 07/03/22 07/03/22 18:59 06:59 18:59 Weight 64.41 kg - Constitutional General appearance: Present: cooperative - EENT Eyes: Present: EOMI ENT: Present: hearing grossly normal - Neck Neck: Present: normal ROM - Respiratory Respiratory: bilateral: CTA - Cardiovascular Rhythm: regular Heart sounds: normal: S1, S2 - Gastrointestinal General gastrointestinal: Present: soft - Integumentary Integumentary: Present: normal turgor - Musculoskeletal Musculoskeletal: Present: gait normal - Psychiatric Psychiatric: Present: A&O x's 3, appropriate affect, intact judgment & insight - Additional findings Additional findings: Breast examination: BRA: 36B Inspection: Postradiation and surgical changes left breast, bilateral grade 2 ptosis Palpation: Right breast: Multi-positional exam fibrocystic changes no dominant masses or nodules of concern Right axilla: No adenopathy of concern Left breast: Postoperative postradiation changes no dominant masses or nodules of concern Left axilla: No adenopathy of concern Assessment and Plan Assessment: Impression/Plan: Patient status post lumpectomy stage IA left breast invasive ductal carcinoma No evidence of recurrent cancer/recently finished radiation therapy Patient finished Taxol/Herceptin will complete 1 year of Herceptin Aromatase inhibitor as per medical oncology and decision making with the patient Repeat left breast mammogram 4 months with physician exam at that time Recent right breast mammogram [id number] benign BIRADS 2 CC: Dr. Schwartz
== END | disposition home or self-care (01) ==
LOC: WWCWWP 14:11
PROVIDERS: ATTEND Surgery
DX: Z53.9 Procedure and treatment not carried out, unspecified reason (principal)

== ENCOUNTER → 2023-06-14 | Outpatient (CLI) | payer OTHER ==
--- NOTE | 2023-06-14 13:36 | MM ---
Reason for Exam: Additional evaluation requested from prior study. Last mammogram was performed 2 year(s) and 0 month(s) ago. Patient History: Menarche at age 15. First Full-Term at age 30. Postmenopausal. Other cancer, age 57. Breast cancer, left, age 60. Patient used Hormonal Contraceptives for 5 years. 10/07/2021, Lumpectomy on the Left side. 12/09/2021, High risk Core Biopsy on the left side. 10/07/2021, Malignant Core Biopsy on the left side. 07/25/2021, Malignant Core Biopsy on the left side. Maternal grandmother had breast cancer, age 55. Mother had breast cancer, age 82. Prior Study Comparison: 05/03/2019 Bilateral Screening Mammogram, [facility]. 05/12/2019 Left Diagnostic Mammogram, [facility]. 11/23/2019 Left Diagnostic Mammogram, [facility]. 06/20/2020 Bilateral Screening Mammogram, [facility]. 06/26/2020 Left Diagnostic Mammogram, [facility]. 03/04/2021 Left Diagnostic Mammogram, [facility]. 06/25/2021 Bilateral Diagnostic Mammogram, [facility]. 08/07/2021 Left Diagnostic Mammogram, [facility]. 07/03/2022 Right MG 3D diag mammo w/cad RT, [facility]. 11/20/2022 Left MG 3D diag mammo w/cad LT, [facility]. Tissue Density: The breast tissue is heterogeneously dense. This may lower the sensitivity of mammography. Findings: Analyzed By CAD. Postoperative distortion of lumpectomy left breast. No evidence for recurrent or residual mass. Scattered benign-appearing calcifications bilaterally. No right breast mass seen. Overall Assessment: Benign, BI-RAD 2 Management: Screening Mammogram of both breasts in 1 year. . Results were given to the patient verbally at the time of exam. Patient should continue monthly self-breast exams. A clinical breast exam by your physician is recommended on an annual basis. This exam should not preclude additional follow-up of suspicious palpable abnormalities. Note on Rachael scores and lifetime risk: 1. A Rachael score greater than 3% is considered moderate risk. If this is the case, consider specialist referral to assess eligibility for a risk reducing agent. 2. If overall lifetime risk for the development of breast cancer is 20% or higher, the patient may qualify for future screening with alternating mammogram and breast MRI. Electronically signed and approved by: Addy Dominguez M.D. Radiologis
== END | disposition home or self-care (01) ==
LOC: RADMAMWWP 12:46
PROVIDERS: ATTEND Surgery
DX: R92.8 Other abnormal and inconclusive findings on diagnostic imaging of breast (principal); Z78.0 Asymptomatic menopausal state; Z80.3 Family history of malignant neoplasm of breast; Z85.3 Personal history of malignant neoplasm of breast
CPT/HCPCS: 77062; 77066

== ENCOUNTER → 2023-06-17 | Outpatient (CLI) | payer OTHER ==
--- NOTE | 2023-06-17 15:12 | P.PN ---
Subjective Progress Note Date: 06/17/23 Principal diagnosis: left breast stage IA invasive ductal cancer left breast stage IA invasive ductal cancer/dx. 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 Hall she does not feel any lumps masses or nodules of concern in either breast. She had a recent bilateral mammogram performed on . This revealed 2 areas of mi crocalcification of concern in the left breast. She was recommended to undergo a left breast stereotactic core biopsy. She has not had any procedures on her breast in the past. She was not complaining of any nipple discharge or skin changes. One of the areas of concern were able to be seen for sterotactic biopsy and this was sampled on 07-25-21 and was + for high grade DCIS, Grade 3. This was ER+, Pr-. She had genetic testing done and this was positive for a variant of unknown significance. 11-07-21 Dania had a left breast lumpectoy and SNB in the operating room on 10-07-21. Pathology revealed multifocal ductal carcinoma insitu with a positive medial margin. A 4 mm focus of invasive carcinoma was identified which was completely excised. her case was presented at tumor board and recommendation for re-excision versus mastectomy. SNB was negative for tumor 05-01-22 The patient underwent re-excision of the lumpectomy site, medial margin on 12-09-21. No further cancer was noted. She was seen by radiation oncology and is recommended to start radiation therapy which she will do in about 1 month. She was seen by Dr. Miranda and is receiving Taxol and transtuzamab. She will be done with the Taxol next week and will continue the transtuzamab for a full year. She is not concerned about any new lumps masses or nodules in her breast at this time. 07-03-[address] Miranda reviewed 05-28-22 ; patient received adjuvant weekly Taxol/Herceptin 12 weeks with recommendation of one full year of Herceptin Adjuvant endocrine therapy after x-ray therapy completed Note radiation oncology reviewed 01-06-22; She finished radiation June 17 She is not complaining of any new lumps, masses or nodules in her breast. Her last mammogram was 07-03-22 for the right side. She will wait for the left side until healed from the radiation. 11-20-22 left breast mammogram 11-20-22 BIRAD 3 repeat bilateral mammogram in June 2023 review radiation oncology note 10-07-22 Dr. Villeda, she finished her radiation in June 2022. That was done at [facility]. The patient is not concerned about any new lumps masses or nodules in either breast. She is continuing to take herceptin, and exemestane. She is doing well with these. 06-17-23 Bilateral mammogram on 06-14-23 BIRAD 2 The patient is not complaining of any new lumps masses or nodules of concern in either breast. The patient has requested alternating MRI with mammogram every 6 months. She completed Herceptin in February 2023, she is still taking exmestane medical oncology note 12-17-22 reviewed Caffeine: 4 cups/day nicotine: none chocolate: occasional hormones: none BCP: in 20's for 5 years Family History: mother: breast cancer > 80 maternal grandmother: breast cancer in 50's father: prostate cancer patient basal cell cancer on face Hormonal history: Menarche: 15 , breast fed: no, age at first : 31 menopause: 55 hormones: none Surgical history: skin cancer basal cell left breast lumpectomy and SNB Medical history: Negative Social history: Nicotine: Negative Alcohol:weekly several drinks drugs: none - Constitutional Constitutional: Denies chills, Denies fever - EENT Eyes: denies blurred vision, denies pain Ears: deny: decreased hearing, tinnitus Ears, nose, mouth and throat: Denies headache, Denies sore throat - Breasts Breasts: bilateral: as per HPI - Cardiovascular Cardiovascular: Denies chest pain, Denies shortness of breath - Respiratory Comment: asthma Respiratory: Denies cough - Gastrointestinal Gastrointestinal: Denies abdominal pain, Denies diarrhea, Denies nausea, Denies vomiting - Genitourinary (Female) Genitourinary: Denies dysuria, Denies hematuria - Menstruation Menstruation: Reports as per HPI, Reports postmenopausal - Musculoskeletal Musculoskeletal: Denies myalgias - Integumentary Integumentary: Denies pruritus, Denies rash - Neurological Neurological: Denies numbness, Denies weakness - Psychiatric Psychiatric: Denies anxiety, Denies depression - Endocrine Endocrine: Denies fatigue, Denies weight change - Hematologic/Lymphatic Comment: none - Allergic/Immunologic Allergic/Immunologic: Reports seasonal allergies Objective - Constitutional General appearance: Present: cooperative - EENT Eyes: Present: EOMI ENT: Present: hearing grossly normal - Neck Neck: Present: normal ROM - Respiratory Respiratory: bilateral: CTA - Cardiovascular Heart sounds: normal: S1, S2 - Integumentary Integumentary: Present: normal turgor - Musculoskeletal Musculoskeletal: Present: gait normal - Psychiatric Psychiatric: Present: A&O x's 3, appropriate affect, intact judgment & insight - Additional findings Additional findings: Breast examination: BRA: 36B Inspection: Postradiation and surgical changes left breast, bilateral grade 2 ptosis Palpation: Right breast: Multi-positional exam fibrocystic changes no dominant masses or nodules of concern Right axilla: No adenopathy of concern Left breast: Postoperative postradiation changes no dominant masses or nodules of concern Left axilla: No adenopathy of concern Assessment and Plan Assessment: Impression/Plan: Patient status post lumpectomy stage IA left breast invasive ductal carcinoma No evidence of recurrent cancer/finished radiation therapy Patient finished Taxol/Herceptin will complete 1 year of Herceptin Aromatase inhibitor as per medical oncology and decision making with the patient appointment after bilateral mammogram in June 2023 Bilateral mammogram 06-14-23 BIRAD 2; patient would like to have alternating mammogram and MRI every 6 months we will see if her insurance company will allow this Continue to follow up with medical oncology follow up here in 6 months CC: Dr. Schwartz
== END ==
LOC: WWCWWP 13:29
PROVIDERS: ATTEND Surgery
DX: Z85.3 Personal history of malignant neoplasm of breast (principal); Z80.3 Family history of malignant neoplasm of breast; Z92.3 Personal history of irradiation; Z91.048 Other nonmedicinal substance allergy status

== ENCOUNTER → 2024-01-13 | Outpatient (CLI) | payer OTHER ==
--- NOTE | 2024-01-13 13:14 | P.PN ---
Subjective Progress Note Date: 01/13/24 06/17/23 Principal diagnosis: left breast stage IA invasive ductal cancer/dx. 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 Hall she does not feel any lumps masses or nodules of concern in either breast. She had a recent bilateral mammogram performed on . This revealed 2 areas of microcalcification of concern in the left breast. She was recommended to undergo a left breast stereotactic core biopsy. She has not had any procedures on her breast in the past. She was not complaining of any nipple discharge or skin changes. One of the areas of concern were able to be seen for sterotactic biopsy and this was sampled on 07-25-21 and was + for high grade DCIS, Grade 3. This was ER+, Pr-. She had genetic testing done and this was positive for a variant of unknown significance. 11-07-21 Dania had a left breast lumpectoy and SNB in the operating room on 10-07-21. Pathology revealed multifocal ductal carcinoma insitu with a positive medial margin. A 4 mm focus of invasive carcinoma was identified which was completely excised. her case was presented at tumor board and recommendation for re-excision versus mastectomy. SNB was negative for tumor 05-01-22 The patient underwent re-excision of the lumpectomy site, medial margin on 12-09-21. No further cancer was noted. She was seen by radiation oncology and is recommended to start radiation therapy which she will do in about 1 month. She was seen by Dr. Miranda and is receiving Taxol and transtuzamab. She will be done with the Taxol next week and will continue the transtuzamab for a full year. She is not concerned about any new lumps masses or nodules in her breast at this time. 07-03-[address] Miranda reviewed 05-28-22 ; patient received adjuvant weekly Taxol/Herceptin 12 weeks with recommendation of one full year of Herceptin Adjuvant endocrine therapy after x-ray therapy completed Note radiation oncology reviewed 01-06-22; She finished radiation June 17 She is not complaining of any new lumps, masses or nodules in her breast. Her last mammogram was 07-03-22 for the right side. She will wait for the left side until healed from the radiation. 11-20-22 left breast mammogram 11-20-22 BIRAD 3 repeat bilateral mammogram in June 2023 review radiation oncology note 10-07-22 Dr. Villeda, she finished her radiation in June 2022. That was done at [facility]. The patient is not concerned about any new lumps masses or nodules in either breast. She is continuing to take herceptin, and exemestane. She is doing well with these. 06-17-23 Bilateral mammogram on 06-14-23 BIRAD 2 The patient is not complaining of any new lumps masses or nodules of concern in either breast. The patient has requested alternating MRI with mammogram every 6 months. She completed Herceptin in February 2023, she is still taking exmestane medical oncology note 12-17-22 reviewed 01-13-24 left breast stage IA invasive ductal cancer/dx. 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 Caffeine: 4 cups/day nicotine: none chocolate: occasional hormones: none BCP: in 20's for 5 years Family History: mother: breast cancer > 80 maternal grandmother: breast cancer in 50's father: prostate cancer patient basal cell cancer on face Hormonal history: Menarche: 15 , breast fed: no, age at first : 31 menopause: 55 hormones: none Surgical history: skin cancer basal cell left breast lumpectomy and SNB Medical history: Negative Social history: Nicotine: Negative Alcohol:weekly several drinks drugs: none - Constitutional Constitutional: Denies chills, Denies fever - EENT Eyes: denies blurred vision, denies pain Ears: deny: decreased hearing, tinnitus Ears, nose, mouth and throat: Denies headache, Denies sore throat - Breasts Breasts: bilateral: as per HPI - Cardiovascular Cardiovascular: Denies chest pain, Denies shortness of breath - Respiratory Comment: asthma Respiratory: Denies cough - Gastrointestinal Gastrointestinal: Denies abdominal pain, Denies diarrhea, Denies nausea, Denies vomiting - Genitourinary (Female) Genitourinary: Denies dysuria, Denies hematuria - Menstruation Menstruation: Reports as per HPI, Reports postmenopausal - Musculoskeletal Musculoskeletal: Denies myalgias - Integumentary Integumentary: Denies pruritus, Denies rash - Neurological Neurological: Denies numbness, Denies weakness - Psychiatric Psychiatric: Denies anxiety, Denies depression - Endocrine Endocrine: Denies fatigue, Denies weight change - Hematologic/Lymphatic Comment: none - Allergic/Immunologic Allergic/Immunologic: Reports seasonal allergies Objective - Constitutional General appearance: Present: cooperative - EENT Eyes: Present: EOMI ENT: Present: hearing grossly normal - Neck Neck: Present: normal ROM - Respiratory Respiratory: bilateral: CTA - Cardiovascular Rhythm: regular Heart sounds: normal: S1, S2 - Gastrointestinal General gastrointestinal: Present: soft - Integumentary Integumentary: Present: normal turgor - Musculoskeletal Musculoskeletal: Present: gait normal - Psychiatric Psychiatric: Present: A&O x's 3, appropriate affect, intact judgment & insight - Additional findings Additional findings: Breast examination: BRA: 36B Inspection: Postradiation and surgical changes left breast, bilateral grade 2 ptosis Palpation: Right breast: Multi-positional exam fibrocystic changes no dominant masses or nodules of concern Right axilla: No adenopathy of concern Left breast: Postoperative postradiation changes no dominant masses or nodules of concern Left axilla: No adenopathy of concern Assessment and Plan Assessment: Impression/Plan: Patient status post lumpectomy stage IA left breast invasive ductal carcinoma No evidence of recurrent cancer/finished radiation therapy Patient finished Taxol/Herceptin will complete 1 year of Herceptin Aromatase inhibitor as per medical oncology and decision making with the patient appointment after bilateral mammogram in June 2024 Bilateral mammogram 06-14-23 BIRAD 2; patient would like to have alternating mammogram and MRI every 6 months we will see if her insurance company will allow this, she is scheduled for an MRI next week and will give us that information Continue to follow up with medical oncology follow up here in June after bilateral mammogram will send the information on the MRI CC: Dr. Schwartz
[2024-01-13 13:39] VITALS: BP 123/76; PULSE 68; RESP 16; TEMP 98.1
== END ==
LOC: WWCWWP 12:34
PROVIDERS: ATTEND Surgery
DX: C50.912 Malignant neoplasm of unspecified site of left female breast (principal); R92.0 Mammographic microcalcification found on diagnostic imaging of breast; Z17.0 Estrogen receptor positive status [ER+]; Z80.3 Family history of malignant neoplasm of breast; Z92.3 Personal history of irradiation; Z91.09 Other allergy status, other than to drugs and biological substances; Z91.048 Other nonmedicinal substance allergy status